=== PATIENT | female | born 1935 | race Caucasian/White ===

== ENCOUNTER 2016-06-24 11:43 | Emergency (ER) | payer OTHER, MEDICARE ==
[~2016-06-24] VITALS: Ht 162.6 cm; Wt 46.7 kg
[~2016-06-24 11:43] MED LIST: ATORVASTATIN CA20 M1 PO; AUGMENTIN 875-1 EACH PO; FLEXERIL10 MG PO; FOSAMAX70 M1 PO; GABAPENTIN300 M2 PO; LEVAQUIN500 MG PO; LISINOPRIL40 MG PO; NEURONTIN300 MG PO; NICOTINE PATCH1 EAC2 TOP; OXYCONTIN60 M1 PO; OXYCONTIN60 MG PO; PERCOCET 7.5-31 EACH PO; POTASSIUM CHLO10 ME3 PO; PREDNISONE10 M2 PO; SPIRIVA18 MCG INH; TESSALON PERLE100 MG PO; VERAPAMIL HYDR300 MG PO; VITAMIN C 500500 MG PO; VITAMIN D2000 UNIT PO
[2016-06-24 11:45] VITALS: BP 161/78
--- NOTE | 2016-06-24 13:13 | ED HAND/WRIST INJURY COMPLAINT ---
History of Present Illness General Chief Complaint: Upper Extremity Problem Stated Complaint: RIGHT HAND SWELLING Source: patient, family, old records Exam Limitations: no limitations Vital Signs & Intake/Output Vital Signs & Intake/Output Vital Signs Date Time Temp Pulse Resp B/P Pulse O2 O2 Flow FiO2 Ox Delivery Rate 06/24 1405 95 Room Air 06/24 1145 96.8 74 20 161/78 94 Room Air Allergies Coded Allergies: NO KNOWN ALLERGIES (03/13/16) Reconcile Medications Alendronate Sodium (Fosamax) 70 MG TABLET 1 TAB PO QW BONE STRENGTH (Reported ) in the morning, at least 30 minutes before the first food, beverage, or medication of the day Ascorbic Acid/Ascorbate Sodium (Vitamin C 500 MG Wafer) 500 MG WAFER 1 TAB PO DAILY SUPPLEMENT (Reported) Atorvastatin Calcium 20 MG TABLET 1 TAB PO DAILY HEART HEALTH (Reported) Cephalexin (Keflex) 500 MG CAPSULE 1 CAP PO TID cellulitis Cholecalciferol (Vitamin D3) (Vitamin D) 2,000 UNIT CAPSULE 2,500 UNITS PO DAILY SUPPLEMENT (Reported) Gabapentin 300 MG CAPSULE 1 CAP PO DAILY PAIN (Reported) Nicotine (Nicotine Patch) 14 MG/24 HOUR PATCH.TD24 14 MG TOP DAILY Smoking cessation Oxycodone HCl/Acetaminophen (Percocet 7.5-325 MG Tablet) 7.5 MG-325 MG TABLET 1 TAB PO 4XDP PAIN CONTROL (Reported) Tiotropium [place] (Spiriva) 18 MCG CAP.W.DEV 1 CAP INH DAILY SHORTNESS OF BREATH (Reported) Verapamil HCl (Verapamil ER) 180 MG TABLET.ER 1 TAB PO DAILY HIGH BLOOD PRESSURE (Reported) Verapamil HCl (Verapamil ER) 120 MG TABLET.ER 1 TAB PO DAILY ACID REFLUX ( Reported) Triage Note: PT TO ED C/O RIGHT HAND SWELLING X 2 DAYS. DENIES ANY INJURY. Triage Nurses Notes Reviewed? yes Occurred: yesterday Duration: day(s): (2), constant Timing: recent history Injury Environment: home Severity: moderate Severity Numbers: 5 Pain/Injury Location: Right: Hand. Method of Injury: unknown No Modifying Factors: none Associated Symptoms: swelling, redness HPI: 80-year-old female history of COPD CHF presents emergency room complaining of right dorsal hand swelling that's been present for the past 2 days. She denies history of known trauma injury or fall. She is only complaining of mild aching pain. The symptoms are sudden in onset. Nonradiating. She states she had a history of similar episodes last year when she was scratched by her cat however denies recent bite or scratch prior to the symptoms beginning which brought her in today. She denies noting any streaking up her arm no numbness or tingling. No fever chills diaphoresis chest pain shortness of breath or abdominal pain. She is not taken anything for her symptoms are sought care until today. (LINDSEY SHARIF) Past History Travel History Traveled to [place] past 21 day No Medical History Any Pertinent Medical History? see below for history Neurological: NONE EENT: NONE Cardiovascular: CHF, hypertension, hyperlipidemia Respiratory: COPD Gastrointestinal: NONE, diverticulosis AVMs Hepatic: NONE Renal: NONE Musculoskeletal: chronic back pain, osteoarthritis, osteoporosis, spinal stenosis Psychiatric: NONE Endocrine: NONE Blood Disorders: NONE Cancer(s): NONE [employer] WALL[employer] INSPECTOR/Reproductive: NONE History of MRSA: No History of VRE: No History of CDIFF: No Pneumonia Vaccine: 02/02/15 Influenza Vaccine: 02/03/16 Tetanus Vaccine: 12/23/12 Surgical History Surgical History: N Psychosocial History Who do you live with Family Services at Home None What is your primary language Brazilian Tobacco Use: Current Daily Use Daily Tobacco Use Amount/Type: => 5 Cigarettes daily ETOH Use: denies use Illicit Drug Use: denies illicit drug use Family History Hx Contributory? No (LINDSEY SHARIF) Review of Systems Review of Systems Constitutional: Reports: see HPI. All Other Systems: Reviewed and Negative Comments Review of systems: See HPI, All other systems negative. Constitutional, no chills no fever, no malaise HEENT: no sore throat no congestion, no ear pain Cardiovascular: No chest pain , no palpitation Skin: see hpi Respiratory: No dyspnea no cough no sputum GI: No nausea no vomiting, no diarrhea, : No dysuria Muscle skeletal: No joint pain, no joint swelling, no back pain, no neck pain, Neurologic: No numbness no confusion, no headache Psych: No stress Heme/endocrine: No bruising no bleeding Immunology: No lymphadenopathy, (LINDSEY SHARIF) Physical Exam Physical Exam General Appearance: well developed/nourished, no apparent distress, alert, awake Hand Left: normal inspection Hand Right: normal range of motion Comments: Well-developed well-nourished patient in no apparent distress. HEENT: Atraumatic, extraocular motion intact Neck: Supple, FROM, Back: FROM Cardiovascular: Regular rate and rhythms no murmurs rubs Respiratory: No respiratory distress. Patient speaking in full complete sentences. Shoulder: Atraumatic/Stable. FROM . Elbow: Atraumatic/stable. FROM. No laxity Upper arm/Forearm: Atraumatic. Nontender. No edema, 5 out of 5 bell maker strength noted to bilateral upper extremities Hand/Wrist: There is moderate swelling over the dorsal aspect of the right hand with overlying erythema and warmth, there is no induration or fluctuance mild tenderness to palpation, the palmar aspect the hand is unremarkable, the forearm is unremarkable there is no streaking up the skin FROM Pulses: Normal/equal radial pulses bilaterally. Brisk cap refill Lower Extremities: full range of motion Neuro: Alert and oriented x3 Skin: Warm & dry;No appreciable rash on exposed skin Psych: Mood affect normal, normal memory normal judgment. (LINDSEY SHARIF) Progress Differential Diagnosis: abscess, cellulitis, contusion, compartment syndrome, dislocation, fracture, gout, septic arthritis, sprain, tenosynovitis, arthritis Plan of Care: Current Medications Sig/Shelly Start time Last Medication Dose Stop Time Status Admin Cephalexin 500 MG ONCE ONE 06/24 1330 UNVr (Keflex) 06/24 1331 Patient has no recent injury trauma, she will follow up with her primary care physician or return to the ER 48 hours for wound check prescription for Keflex was called into her pharmacy advised return anytime sooner with any concerns they feel comfortable with this plan cleared for discharge (LINDSEY SHARIF) Departure Departure Time of Disposition: 1321 Disposition: HOME OR SELF CARE Condition: Stable Clinical Impression Primary Impression: Cellulitis Referrals: COLLEEN GIPSON MD (PCP/Family) Additional Instructions: Follow-up with your primary care physician as discussed in 48 hours for wound check or return to the emergency room. Keflex as directed, return anytime sooner however if he develop redness or swelling up your forearm he develop fever chills or any other concerns. This prescription was sent to your pharmacy Departure Forms: Customer Survey General Discharge Information Prescriptions: Current Visit Scripts Cephalexin (Keflex) 1 CAP PO TID #21 CAP (LINDSEY SHARIF) PA/PROGRAM CONSULTANT Co-Sign Statement Statement: ED Attending supervision documentation- [x] I saw and evaluated the patient. I have also reviewed all the pertinent lab results and diagnostic results. I agree with the findings and the plan of care as documented in the PA's/PROGRAM CONSULTANT's documentation. [] I have reviewed the ED Record and agree with the PA's/PROGRAM CONSULTANT's documentation. [] Additions or exceptions (if any) to the PAs/PROGRAM CONSULTANT's note and plan are summarized below: [] (JORDAN GUZMAN,DIOGENES Ruiz)
[2016-06-24] MEDS ORDERED: KEFLEX500 M1 PO (13:22)
[2016-06-24] MEDS ORDERED: VERAPAMIL ER120 M1 PO (13:51)
[2016-06-24] MEDS ORDERED: VERAPAMIL ER180 M1 PO (13:51)
== END 2016-06-24 14:10 ==
LOC: ERH 11:43
DX: L03.113 Cellulitis of right upper limb (principal)